=== PATIENT | female | born 2000 | race Caucasian/White ===

== ENCOUNTER 2021-02-05 04:15 | Emergency (ER) | payer OTHER ==
[~2021-02-05] VITALS: Ht 165.1 cm; Wt 83.0 kg
[2021-02-05 04:15] VITALS: BP 126/76
--- NOTE | 2021-02-05 04:27 | NUR ---
[facility] AT BEDSIDE FOR MEDICAL EVALUATION.
--- NOTE | 2021-02-05 04:28 | NUR ---
PT AMBULATED TO ER BED 11 W/ STEADY GAIT. [facility] AT BEDSIDE.
--- NOTE | 2021-02-05 04:31 | NUR ---
[facility] AT BEDSIDE FOR ULTRASOUND.
[2021-02-05] MEDS ORDERED: BACITRACIN OINT 500 UNITS/GM PKT TP ONE (04:50)
[2021-02-05 05:02] VITALS: BP 126/76
--- NOTE | 2021-02-05 05:02 | NUR ---
Patient discharged with v/s stable. Written and verbal after care instructions given and explained. Patient verbalized understanding. Ambulatory with [facility] in custody. All questions addressed prior to discharge. Advised to follow up with PMD.
== END 2021-02-05 05:02 ==
LOC: MED 04:15
DX: S20.311A Abrasion of right front wall of thorax, initial encounter (principal); F10.129 Alcohol abuse with intoxication, unspecified; Z02.89 Encounter for other administrative examinations; V98.8XXA Other specified transport accidents, initial encounter; Y93.89 Activity, other specified; Y92.89 Other specified places as the place of occurrence of the external cause; Y99.8 Other external cause status
CPT/HCPCS: 81002; 81025; 99284; 99285